=== PATIENT | male | born 1985 | race Caucasian/White ===

== ENCOUNTER 2016-12-03 20:47 | Emergency (ER) | payer SELFPAY ==
[2016-12-03] MEDS ORDERED: Sodium Chloride 0.9% 10 ML Syringe FLUSH PRN (21:17)
[2016-12-03] MEDS ORDERED: Sodium Chloride 0.9% 1,000 ML IV ONE (21:17)
[2016-12-03] MEDS ORDERED: Acetaminophen 500 MG Tab PO ONE (21:19)
[2016-12-03 22:17] VITALS: BP 138/80
--- NOTE | 2016-12-03 22:21 | EDM.PDOC ---
ED HPI GENERAL MEDICAL PROBLEM - General Chief Complaint: General Stated Complaint: DIZZY LIGHTHEADED HEADACHE Time Seen by Provider: 12/03/16 21:00 Source of Information: Reports: Patient, Family History Limitations: Reports: No Limitations - History of Present Illness INITIAL COMMENTS - FREE TEXT/NARRATIVE: Cain presents to the ER today with complaints of feeling weak, hot, headache since noon and dizziness. He states he was out canoeing today for 3 or more hours without use of sunscreen or skin protection. He also reports he has not taken his diabetic medications for over 6 weeks which include metformin. He uses 1 to 2 cigarettes per day. Drinks social alcohol. Uses marijuana weekly or whenever he can get it. Onset: Today, Gradual Quality: Reports: Other (tingling,numbness to bilateral feet. Sunburn to face, chest, bilateral arms. ) Severity: Moderate Improves with: Reports: None Worsens with: Reports: Movement Headache Pain Score (Numeric/FACES): 8 - Related Data Allergies Allergy/AdvReac Type Severity Reaction Status Date / Time No Known Allergies Allergy Verified 12/03/16 20:51 Home Meds: Home Meds metFORMIN [Glucophage XR] 500 mg PO BID 12/03/16 [History] Past Medical History Neurological History: Reports: Neuropathy, Diabetic Endocrine/Metabolic History: Reports: Diabetes, Type II Social & Family History - Tobacco Use Smoking Status *Q: Heavy Tobacco Smoker Years of Tobacco use: 22 Packs/Tins Daily: 0.5 - Caffeine Use Caffeine Use: Reports: Coffee, Energy Drinks, Soda - Recreational Drug Use Recreational Drug Use: Yes Recreational Drug Type: Reports: Marijuana/Hashish ED ROS GENERAL - Review of Systems Review Of Systems: See Below Constitutional: Reports: Weakness. Denies: Fever, Chills, Malaise HEENT: Reports: No Symptoms Respiratory: Denies: Shortness of Breath, Wheezing, Cough, Sputum Cardiovascular: Reports: Palpitations. Denies: Chest Pain, Dyspnea on Exertion , Edema, Lightheadedness, PND, Syncope Endocrine: Reports: No Symptoms GI/Abdominal: Denies: Abdominal Pain, Bloody Stool, Constipation, Diarrhea, Difficulty Swallowing, Nausea, Vomiting : Denies: Dysuria, Flank Pain, Frequency, Hematuria, Pain, Urgency Musculoskeletal: Reports: Foot Pain, Other (Patient reports peripheral neuropathy to bilateral feet. ) Skin: Reports: Other (Facial erythema/edema from sun exposure today. ). Denies : Rash, Wound Neurological: Denies: Confusion, Dizziness, Headache, Numbness, Tingling, Trouble Speaking, Weakness, Gait Disturbance Psychiatric: Reports: No Symptoms ED EXAM, GENERAL - Physical Exam Exam: See Below Free Text/Narrative:: Cain is an alert, oriented 31 year old male presenting with complaints of headache, dizziness, sun exposure and pain to bilateral feet. Exam Limited By: No Limitations General Appearance: Alert, WD/WN, No Apparent Distress Eye Exam: Bilateral Eye: EOMI, PERRL Ears: Normal External Exam, Normal Canal, Hearing Grossly Normal, Normal TMs Ear Exam: Bilateral Ear: Auricle Normal, Canal Normal, TM normal Nose: Normal Inspection, Normal Mucosa, No Blood Throat/Mouth: Normal Inspection, Normal Lips, Normal Oropharynx, Normal Voice, No Airway Compromise Head: Atraumatic, Normocephalic Neck: Normal Inspection, Supple, Non-Tender, Full Range of Motion. No: Lymphadenopathy (R), Lymphadenopathy (L) Respiratory/Chest: No Respiratory Distress, Lungs Clear, Normal Breath Sounds, No Accessory Muscle Use, Chest Non-Tender Cardiovascular: Normal Peripheral Pulses, Regular Rate, Rhythm, No Edema, No Gallop, No Murmur, No Rub Peripheral Pulses: 2+: Radial (L), Radial (R), Dorsalis Pedis (L), Dorsalis Pedis (R) GI/Abdominal: Normal Bowel Sounds, Soft, No Organomegaly, No Distention, No Mass , Tender, Other (tenderness to RUQ, LUQ with palpation, no rebound, negative Wray's and McBurney's. ) Back Exam: Normal Inspection, Full Range of Motion. No: CVA Tenderness (R), CVA Tenderness (L) Extremities: Normal Inspection, Normal Range of Motion, Non-Tender, No Pedal Edema, Normal Capillary Refill Neurological: Alert, Oriented, CN II-XII Intact, Normal Cognition, Normal Gait, No Motor/Sensory Deficits Psychiatric: Normal Affect, Normal Mood Skin Exam: Warm, Dry, Intact, Other (Redness and warmth to bilateral arms, face , neck without blistering or peeling of skin. ) Lymphatic: No Adenopathy EKG INTERPRETATION EKG Date: 12/03/16 Rhythm: NSR Wittmann: Normal P-Wave: Present QRS: Normal ST-T: Normal QT: Normal Course - Vital Signs Last Recorded V/S: Last Vital Signs Temp 36.6 C 12/03/16 20:54 Pulse 73 12/03/16 22:17 Resp 18 12/03/16 22:17 BP 138/80 12/03/16 22:17 Pulse Ox 96 12/03/16 22:17 - Orders/Labs/Meds Orders: Active Orders 24 hr Category Date Time Status EKG Documentation Completion [RC] ASDIRECTED Care 12/03/16 21:17 Active Sodium Chloride 0.9% [Normal Saline] 1,000 ml Med 12/03/16 22:30 Active IV ASDIRECTED Sodium Chloride 0.9% [Saline Flush] Med 12/03/16 21:17 Active 10 ml FLUSH ASDIRECTED PRN Saline Lock Insert [OM.PC] Routine Oth 12/03/16 21:17 Ordered EKG 12 Lead [EK] Routine Ther 12/03/16 21:17 Ordered Medication Orders Sodium Chloride (Normal Saline) 1,000 mls @ 1,000 mls/hr IV ASDIRECTED ERMELINDA Last Admin: 12/03/16 22:32 Dose: 1,000 mls/hr Sodium Chloride (Saline Flush) 10 ml FLUSH ASDIRECTED PRN PRN Reason: Keep Vein Open Last Admin: 12/03/16 21:30 Dose: 10 ml Labs: Laboratory Tests 12/03/16 12/03/16 12/03/16 Range/Units 21:29 21:29 21:29 WBC 9.2 (4.5-11.0) K/uL RBC 5.27 (4.30-5.90) M/uL Hgb 15.8 H (12.0-15.0) g/dL Hct 45.8 (40.0-54.0) % MCV 87 (80-98) fL MCH 30 (27-31) pg MCHC 35 (32-36) % Plt Count 231 (150-400) K/uL Neut % (Auto) 58 (36-66) % Lymph % (Auto) 28 (24-44) % Dade % (Auto) 12 H (2-6) % Eos % (Auto) 2 (2-4) % Baso % (Auto) 1 (0-1) % Sodium 138 L (140-148) mmol/L Potassium 3.8 (3.6-5.2) mmol/L Chloride 103 (100-108) mmol/L Carbon Dioxide 27 (21-32) mmol/L Anion Gap 11.8 (5.0-14.0) mmol/L BUN 17 (7-18) mg/dL Creatinine 1.2 (0.8-1.3) mg/dL Est Cr Clr Drug Dosing TNP Estimated GFR (MDRD) > 60 (>60) Glucose 151 H (74-106) mg/dL Hemoglobin A1c 7.5 H (4.5-6.2) % Calcium 8.5 (8.5-10.1) mg/dL Magnesium 2.3 (1.8-2.4) mg/dL Total Bilirubin 0.3 (0.2-1.0) mg/dL AST 14 L (15-37) U/L ALT 26 (12-78) U/L Alkaline Phosphatase 85 (46-116) U/L Total Protein 7.1 (6.4-8.2) g/dL Albumin 3.6 (3.4-5.0) g/dL Globulin 3.5 (2.3-3.5) g/dL Albumin/Globulin Ratio 1.0 L (1.2-2.2) Amylase 35 (25-115) U/L Lipase 172 (73-393) U/L Urine Color Urine Appearance Urine pH (4.5-8.0) Ur Specific [place] (1.008-1.030) Urine Protein (NEGATIVE) mg/dL Urine Glucose (UA) (NEGATIVE) mg/dL Urine Ketones (NEGATIVE) mg/dL Urine Occult Blood (NEGATIVE) Urine Nitrite (NEGAITVE) Urine Bilirubin (NEGATIVE) Urine Urobilinogen (NORMAL) mg/dL Ur Leukocyte Esterase (NEGATIVE) Urine RBC (0-5) Urine WBC (0-5) Ur Epithelial Cells Amorphous Sediment Urine Bacteria Urine Mucus Urine Opiates Screen (NEGATIVE) Ur Oxycodone Screen (NEGATIVE) Urine Methadone Screen (NEGATIVE) Ur Propoxyphene Screen (NEGATIVE) Ur Barbiturates Screen (NEGATIVE) Ur Tricyclics Screen (NEGATIVE) Ur Phencyclidine Scrn (NEGATIVE) Ur Amphetamine Screen (NEGATIVE) U Methamphetamines Scrn (NEGATIVE) Urine MDMA Screen (NEGATIVE) U Benzodiazepines Scrn (NEGATIVE) U Cocaine Metab Screen (NEGATIVE) U Marijuana (THC) Screen (NEGATIVE) 12/03/16 12/03/16 Range/Units 22:22 22:22 WBC (4.5-11.0) K/uL RBC (4.30-5.90) M/uL Hgb (12.0-15.0) g/dL Hct (40.0-54.0) % MCV (80-98) fL MCH (27-31) pg MCHC (32-36) % Plt Count (150-400) K/uL Neut % (Auto) (36-66) % Lymph % (Auto) (24-44) % Dade % (Auto) (2-6) % Eos % (Auto) (2-4) % Baso % (Auto) (0-1) % Sodium (140-148) mmol/L Potassium (3.6-5.2) mmol/L Chloride (100-108) mmol/L Carbon Dioxide (21-32) mmol/L Anion Gap (5.0-14.0) mmol/L BUN (7-18) mg/dL Creatinine (0.8-1.3) mg/dL Est Cr Clr Drug Dosing Estimated GFR (MDRD) (>60) Glucose (74-106) mg/dL Hemoglobin A1c (4.5-6.2) % Calcium (8.5-10.1) mg/dL Magnesium (1.8-2.4) mg/dL Total Bilirubin (0.2-1.0) mg/dL AST (15-37) U/L ALT (12-78) U/L Alkaline Phosphatase (46-116) U/L Total Protein (6.4-8.2) g/dL Albumin (3.4-5.0) g/dL Globulin (2.3-3.5) g/dL Albumin/Globulin Ratio (1.2-2.2) Amylase (25-115) U/L Lipase (73-393) U/L Urine Color Yellow Urine Appearance Slightly cloudy Urine pH 6.0 (4.5-8.0) Ur Specific [place] 1.020 (1.008-1.030) Urine Protein Negative (NEGATIVE) mg/dL Urine Glucose (UA) 100 H (NEGATIVE) mg/dL Urine Ketones Negative (NEGATIVE) mg/dL Urine Occult Blood Negative (NEGATIVE) Urine Nitrite Negative (NEGAITVE) Urine Bilirubin Small (NEGATIVE) Urine Urobilinogen 1 (NORMAL) mg/dL Ur Leukocyte Esterase Negative (NEGATIVE) Urine RBC 0-5 (0-5) Urine WBC 0-5 (0-5) Ur Epithelial Cells Rare Amorphous Sediment Rare Urine Bacteria Rare Urine Mucus Many Urine Opiates Screen Negative (NEGATIVE) Ur Oxycodone Screen Negative (NEGATIVE) Urine Methadone Screen Negative (NEGATIVE) Ur Propoxyphene Screen Negative (NEGATIVE) Ur Barbiturates Screen Negative (NEGATIVE) Ur Tricyclics Screen Negative (NEGATIVE) Ur Phencyclidine Scrn Negative (NEGATIVE) Ur Amphetamine Screen Negative (NEGATIVE) U Methamphetamines Scrn Negative (NEGATIVE) Urine MDMA Screen Negative (NEGATIVE) U Benzodiazepines Scrn Negative (NEGATIVE) U Cocaine Metab Screen Negative (NEGATIVE) U Marijuana (THC) Screen Positive H (NEGATIVE) Lab work reviewed Meds: Medications Generic Name Dose Route Start Last Admin Trade Name Freq PRN Reason Stop Dose Admin Sodium Chloride 1,000 mls @ 1,000 mls/hr 12/03/16 22:30 12/03/16 22:32 Normal Saline IV 1,000 mls/hr ASDIRECTED ERMELINDA Administration Sodium Chloride 10 ml 12/03/16 21:17 12/03/16 21:30 Saline Flush FLUSH 10 ml ASDIRECTED PRN Administration Keep Vein Open Discontinued Medications Generic Name Dose Route Start Last Admin Trade Name Freq PRN Reason Stop Dose Admin Acetaminophen 1,000 mg 12/03/16 21:19 12/03/16 21:32 Tylenol Extra Strength PO 12/03/16 21:20 1,000 mg ONETIME ONE Administration Diphenhydramine HCl 50 mg 12/03/16 22:41 Benadryl IVPUSH 12/03/16 22:42 ONETIME ONE Sodium Chloride 1,000 mls @ 1,000 mls/hr 12/03/16 21:17 12/03/16 21:30 Normal Saline IV 12/03/16 22:16 1,000 mls/hr .BOLUS ONE Administration Ketorolac Tromethamine 30 mg 12/03/16 22:25 12/03/16 22:29 Toradol IVPUSH 12/03/16 22:26 30 mg ONETIME ONE Administration - Re-Assessments/Exams Free Text/Narrative Re-Assessment/Exam: 12/03/16 22:26 Lab work reviewed, shows signs of dehydration. No acute renal injury or ketoacidosis. Benadryl for continued headache with toradol. Free Text/Narrative Re-Assessment/Exam: 12/03/16 22:41 Lab work and status reviewed with patient. He was advised to stop use of marijuana, stop cigarette use, work on diet with decrease in carbohydrate/sugar intake, decrease soda pop intake, increase of exercise and care of his diabetes. He was provided education on sun exposure and prevention of sunburn. All his questions were answered. He is in agreement with plan of care. Departure - Departure Time of Disposition: 22:43 Disposition: Home, Self-Care 01 Condition: Fair Clinical Impression: Sun exposure, mild, Diabetes mellitus - Discharge Information Referrals: PCP,None [Primary Care Provider] - Forms: ED Department Discharge Additional Instructions: You have suffered from heat/sun exposure, dehydration and poor management of diabetes mellitus type two. It is best for you to limit sun exposure the next several days. You can use oatmeal bath product to help with sunburn as well as alovera products. Use of ibuprofen 800mg PO three times a day as needed with food can help with pain. You can also take acetaminophen for pain as directed. Stay hydrated with drinking plenty of water, limit use of soda pop. Apply and use sunscreen when sun exposure is likely. Monitor your blood sugar, take metformin ER as directed. Make an appointment with a primary care provider to help manage your chronic illness. Return for worsening, vomiting, fever or concerns. - My Orders Last 24 Hours: My Active Orders 12/03/16 21:17 EKG Documentation Completion [RC] ASDIRECTED Sodium Chloride 0.9% [Saline Flush] 10 ml FLUSH ASDIRECTED PRN Saline Lock Insert [OM.PC] Routine EKG 12 Lead [EK] Routine 12/03/16 22:30 Sodium Chloride 0.9% [Normal Saline] 1,000 ml IV ASDIRECTED - Assessment/Plan Last 24 Hours: My Active Orders 12/03/16 21:17 EKG Documentation Completion [RC] ASDIRECTED Sodium Chloride 0.9% [Saline Flush] 10 ml FLUSH ASDIRECTED PRN Saline Lock Insert [OM.PC] Routine EKG 12 Lead [EK] Routine 12/03/16 22:30 Sodium Chloride 0.9% [Normal Saline] 1,000 ml IV ASDIRECTED Assessment:: Dehydration Sun exposure Diabetes mellitus type two Plan: Heat/sun exposure, dehydration and poor management of diabetes mellitus type two. It is best for to limit sun exposure the next several days. He can use oatmeal bath product to help with sunburn as well as alovera products. Use of ibuprofen 800mg PO three times a day as needed with food can help with pain. Stay hydrated with drinking plenty of water, limit use of soda pop. Apply and use sunscreen when sun exposure is likely. Monitor blood sugar, take metformin ER as directed. Make an appointment with a primary care provider to help manage chronic illness. Return for worsening, vomiting, fever or concerns.
[2016-12-03] MEDS ORDERED: Ketorolac 30 MG/ML SDV IVPUSH ONE (22:25)
[2016-12-03] MEDS ORDERED: Sodium Chloride 0.9% 1,000 ML IV SCH (22:30)
[2016-12-03] MEDS ORDERED: diphenhydrAMINE 50 MG/ML SDV IVPUSH ONE (22:41)
== END 2016-12-03 23:06 | disposition home or self-care (01) ==
LOC: JP.ED 20:47
DX: E86.0 Dehydration (principal); L56.8 Other specified acute skin changes due to ultraviolet radiation; E11.9 Type 2 diabetes mellitus without complications; G62.9 Polyneuropathy, unspecified; F17.210 Nicotine dependence, cigarettes, uncomplicated; Z79.84 Long term (current) use of oral hypoglycemic drugs; X32.XXXA Exposure to sunlight, initial encounter
CPT/HCPCS: 36415; 80053; 80305; 81001; 82150; 83036; 83690; 83735; 85025; 93005; 96361; 96374; 96375; 99285; A9270; J1200; J1885; J7040; J7050; 93010; 99284

== ENCOUNTER 2017-09-24 14:44 | Emergency (ER) | payer SELFPAY ==
[2017-09-24] MEDS ORDERED: Sodium Chloride 0.9% 10 ML Syringe FLUSH PRN (15:14)
[2017-09-24] MEDS ORDERED: Lactated Ringers 1,000 ML IV SCH (15:15)
--- NOTE | 2017-09-24 15:19 | EDM.PDOC ---
<OfficerMarquise - Last Filed: 09/24/17 15:17> ED HPI GENERAL MEDICAL PROBLEM - General Chief Complaint: Abdominal Pain Stated Complaint: VOMITING/ABD PAIN Time Seen by Provider: 09/24/17 15:11 Source of Information: Reports: Patient, Family, RN Notes Reviewed History Limitations: Reports: No Limitations - History of Present Illness INITIAL COMMENTS - FREE TEXT/NARRATIVE: 32-year-old gentleman presents to emergency department today with complaint of nausea and vomiting, he is known history of diabetes mellitus type 2, recently returned from [place], he admits to consuming questionable water yesterday. Over the last 24 hours she has progressively gotten worse with nausea vomiting and diaphoresis, his significant other is not ill consumed the same water. No chest pain or shortness of breath Abdominal Pain Score (Numeric/FACES): 6 - Related Data Allergies Allergy/AdvReac Type Severity Reaction Status Date / Time No Known Allergies Allergy Verified 12/03/16 20:51 Home Meds: Home Meds metFORMIN [Glucophage XR] 500 mg PO BID 12/03/16 [History] Past Medical History Neurological History: Reports: Neuropathy, Diabetic Endocrine/Metabolic History: Reports: Diabetes, Type II Social & Family History - Tobacco Use Smoking Status *Q: Heavy Tobacco Smoker Years of Tobacco use: 20 Packs/Tins Daily: 1 - Caffeine Use Caffeine Use: Reports: Soda - Recreational Drug Use Recreational Drug Use: No ED ROS GENERAL - Review of Systems Review Of Systems: See Below Constitutional: Denies: Fever, Chills HEENT: Reports: No Symptoms Respiratory: Reports: No Symptoms Cardiovascular: Reports: No Symptoms GI/Abdominal: Reports: Abdominal Pain, Flatus, Nausea, Vomiting : Reports: No Symptoms Musculoskeletal: Reports: No Symptoms Skin: Reports: No Symptoms Neurological: Reports: No Symptoms ED EXAM, GI/ABD - Physical Exam Exam: See Below Exam Limited By: No Limitations General Appearance: Alert, WD/WN, No Apparent Distress Neck: Normal Inspection, Supple, Non-Tender, Full Range of Motion Respiratory/Chest: No Respiratory Distress, Lungs Clear, Normal Breath Sounds, No Accessory Muscle Use, Chest Non-Tender Cardiovascular: Regular Rate, Rhythm, No Murmur GI/Abdominal Exam: Normal Bowel Sounds, Soft, Tender (Generalized tenderness) Course - Vital Signs Last Recorded V/S: Last Vital Signs Temp 98.4 F 09/24/17 15:07 Pulse 96 09/24/17 18:10 Resp 16 09/24/17 15:07 BP 129/88 09/24/17 18:10 Pulse Ox 94 L 09/24/17 18:10 - Orders/Labs/Meds Orders: Active Orders 24 hr Category Date Time Status Peripheral IV Care [RC] . DIRECTED Care 09/24/17 15:16 Active UA W/MICROSCOPIC [URIN] Urgent Lab 09/24/17 15:14 Ordered Peripheral IV Insertion Adult [OM.PC] Urgent Oth 09/24/17 15:14 Ordered Labs: Laboratory Tests 09/24/17 09/24/17 09/24/17 Range/Units 15:28 15:28 15:28 WBC 12.0 H (4.5-11.0) K/uL RBC 6.39 H (4.30-5.90) M/uL Hgb 18.8 H* D (12.0-15.0) g/dL Hct 53.4 (40.0-54.0) % MCV 84 (80-98) fL MCH 29 (27-31) pg MCHC 35 (32-36) % Plt Count 232 (150-400) K/uL Neut % (Auto) 86 H (36-66) % Lymph % (Auto) 7 L (24-44) % Dawson % (Auto) 6 (2-6) % Eos % (Auto) 1 L (2-4) % Baso % (Auto) 0 (0-1) % Sodium 138 L (140-148) mmol/L Potassium 3.9 (3.6-5.2) mmol/L Chloride 101 (100-108) mmol/L Carbon Dioxide 21 (21-32) mmol/L Anion Gap 19.9 H (5.0-14.0) mmol/L BUN 17 (7-18) mg/dL Creatinine 1.1 (0.8-1.3) mg/dL Est Cr Clr Drug Dosing 93.27 mL/min Estimated GFR (MDRD) > 60 (>60) Glucose 228 H (74-106) mg/dL Lactic Acid 3.0 H (0.4-2.0) mmol/L Calcium 8.9 (8.5-10.1) mg/dL Total Bilirubin 0.8 D (0.2-1.0) mg/dL AST 21 (15-37) U/L ALT 40 (12-78) U/L Alkaline Phosphatase 91 (46-116) U/L Troponin I < 0.017 (0.000-0.056) ng/mL Total Protein 7.8 (6.4-8.2) g/dL Albumin 4.1 (3.4-5.0) g/dL Globulin 3.7 H (2.3-3.5) g/dL Albumin/Globulin Ratio 1.1 L (1.2-2.2) Lipase 115 (73-393) U/L Meds: Medications Discontinued Medications Generic Name Dose Route Start Last Admin Trade Name Freq PRN Reason Stop Dose Admin Lactated Ringer's 1,000 mls @ 999 mls/hr 09/24/17 15:15 09/24/17 15:28 Ringers, Lactated IV 999 mls/hr ASDIRECTED ERMELINDA Administration Lactated Ringer's 1,000 mls @ 999 mls/hr 09/24/17 16:21 09/24/17 16:38 Ringers, Lactated IV 09/24/17 17:21 999 mls/hr BOLUS ONE Administration Lactated Ringer's 1,000 mls @ 999 mls/hr 09/24/17 17:55 09/24/17 18:02 Ringers, Lactated IV 09/24/17 18:55 999 mls/hr BOLUS ONE Administration Ketorolac Tromethamine 30 mg 09/24/17 18:21 09/24/17 18:40 Toradol IVPUSH 09/24/17 18:22 30 mg ONETIME ONE Administration Ondansetron HCl 4 mg 09/24/17 17:55 09/24/17 18:02 Zofran IVPUSH 09/24/17 17:56 4 mg ONETIME ONE Administration Prochlorperazine Edisylate 5 mg 09/24/17 16:21 09/24/17 16:38 Compazine IVPUSH 09/24/17 16:22 5 mg ONETIME ONE Administration Sodium Chloride 10 ml 09/24/17 15:14 09/24/17 15:28 Saline Flush FLUSH 10 ml ASDIRECTED PRN Administration Keep Vein Open Departure - Departure Disposition: Home, Self-Care 01 Clinical Impression: Gastroenteritis - Discharge Information Instructions: Nausea and Vomiting, Adult, [id number] Referrals: PCP,None [Primary Care Provider] - Forms: ED Department Discharge Care Plan Goals: Rest tonight, maintain fluid intake with small amounts frequently and increase diet as tolerated. Return anytime if worsening or concerns. Advance activity as tolerated as well. <Rk Geller - Last Filed: 09/24/17 19:53> Course - Re-Assessments/Exams Free Text/Narrative Re-Assessment/Exam: 09/24/17 19:01 Patient evaluated, treated by . Officer has been hydrated and treated for symptoms. Labs are reassuring, he is suffering from gastroenteritis from some source. He'll be discharged and encouraged to continue fluids and advance diet as tolerated, return if worsening or concerns. Departure - Departure Time of Disposition: 19:08 Condition: Fair
[2017-09-24] MEDS ORDERED: Lactated Ringers 1,000 ML IV ONE ×2 (16:21→17:55)
[2017-09-24] MEDS ORDERED: Prochlorperazine 10 MG/2 ML SDV IVPUSH ONE (16:21)
[2017-09-24] MEDS ORDERED: Ondansetron 4 MG/2 ML SDV IVPUSH ONE (17:55)
[2017-09-24 18:11] VITALS: BP 129/88
[2017-09-24] MEDS ORDERED: Ketorolac 30 MG/ML SDV IVPUSH ONE (18:21)
== END 2017-09-24 19:07 | disposition home or self-care (01) ==
LOC: JP.ED 14:44
DX: K52.9 Noninfective gastroenteritis and colitis, unspecified (principal); E11.40 Type 2 diabetes mellitus with diabetic neuropathy, unspecified; F17.210 Nicotine dependence, cigarettes, uncomplicated; Z79.84 Long term (current) use of oral hypoglycemic drugs
CPT/HCPCS: 36415; 80053; 83605; 83690; 84484; 85025; 96361; 96374; 96375; 99284; J0780; J1885; J2405; J7050; J7120; 99283